=== PATIENT | male | born 1970 | race Caucasian/White ===

== ENCOUNTER 2018-12-03 02:56 | Emergency (ER) | payer OTHER ==
[~2018-12-03] VITALS: Ht 165.1 cm; Wt 90.0 kg
[2018-12-03] MEDS ORDERED: ZIPRASIDONE 20 MG INJ IM ONE (03:00)
[2018-12-03] MEDS ORDERED: MIDAZOLAM 1 MG/ML, 2ML ONE (03:04)
[2018-12-03] MEDS ORDERED: PLEASE ENTER ALLERGIES MC SCH (03:30)
[2018-12-03] MEDS ORDERED: MIDAZOLAM 1 MG/ML, 5ML IM ONE (03:30)
[2018-12-03] MEDS ORDERED: DIPH,PERTUSS(ACELL),TET VAC/PF NC IM-VACC ONE (03:30)
[2018-12-03 03:35] LABS: BASOPHILS # (AUTO) 0.02 x10^3/uL (0-0.1); BASOPHILS % (AUTO) 0 % (0-1); EOSINOPHILS # (AUTO) 0.02 x10^3/uL (0-0.4); EOSINOPHILS % (AUTO) 0 % (1-7); LYMPHOCYTES % (AUTO) 18 % (22-44); MD NO; MEAN CORPUSCULAR HEMOGLOBIN 31.8 pg (27.5-34.5); MEAN CORPUSCULAR HGB CONC 33.2 g/dL (33.2-36.2); MEAN CORPUSCULAR VOLUME 95.8 fL (81-97); MEAN PLATELET VOLUME 9.7 fL (7.4-10.4); MONOCYTES # (AUTO) 0.71 x10^3/uL (0.2-0.8); MONOCYTES % (AUTO) 8 % (2-9); NEUTROPHILS # (AUTO) 6.78 x10^3/uL (1.8-6.8); NEUTROPHILS % (AUTO) 74 % (42-75); PLATELET COUNT 150 x10^3/uL (130-400); RED BLOOD COUNT 4.91 x10^6/uL (4.38-5.82); RED CELL DISTRIBUTION WIDTH 14.7 % (9.4-14.8)
[2018-12-03 03:40] LABS: ALBUMIN 3.7 g/dL (3.4-5.0); ANION GAP 15 mmol/L (5-15); CALCIUM 8.6 mg/dL (8.5-10.1); CHLORIDE 104 mmol/L (98-107); SALICYLATE LEVEL 3.1 mg/dL (2.8-20.0)
[2018-12-03 03:43] LABS: ALANINE AMINOTRANSFERASE 90 U/L (12-78); ALKALINE PHOSPHATASE 65 U/L (45-117); BILIRUBIN,TOTAL 0.4 mg/dL (0.2-1.0); CREATININE 1.11 mg/dL (0.7-1.3); TOTAL PROTEIN 7.8 g/dL (6.4-8.2)
[2018-12-03] MEDS ORDERED: LORazepam 2 MG/ML, 1ML ONE ×2 (03:46→04:33)
[2018-12-03] MEDS ORDERED: DIPH,PERTUSS(ACELL),TET VAC/PF 0.5 ML IM-VACC ONE (03:59)
[2018-12-03] MEDS ORDERED: LIDOCAINE-MPF 1%, 5ML ONE (03:59)
[2018-12-03] MEDS ORDERED: LORazepam 2 MG/ML, 1ML IVPush ONE ×2 (04:00→04:30)
[2018-12-03] MEDS ORDERED: SODIUM CHLORIDE 0.9% 1,000ML IVBOLUS ONE ×2 (04:00→07:00)
--- NOTE | 2018-12-03 04:11 | NUR ---
pt bib and elzbieta pd, pt placed on legal 1999 by rpd pt cut left wrist and using meth, pt rambling, unorganised thoughts impulsive unable to follow commands, placed in hard locking restraints by rpd and security medicated per emar
[2018-12-03] MEDS ORDERED: BACITRACIN ZINC OINT 500U/GM, 0.9 GM ONE (04:34)
--- NOTE | 2018-12-03 04:49 | NUR ---
meds given per emar pt awawe talking nonsenscicle
--- NOTE | 2018-12-03 06:21 | NUR ---
pt sleeping in nad
--- NOTE | 2018-12-03 07:05 | NUR ---
REC BS REPORT PT SLEEPING ON FULL MONITOR SITTER IN THE [place]
--- NOTE | 2018-12-03 07:15 | NUR ---
REMOVED PT FROM RESTRAINTS WILL MONITOR ACTIVITY SITTER WATCHING THE PT
--- NOTE | 2018-12-03 08:33 | NUR ---
PT RESTING AT THIS TIME AROUSES TO VERBAL SITTER WATCHING THE PT
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
[2018-12-03 09:38] LABS: AMPHETAMINE SCREEN, URINE Positive (Negative); BARBITURATE SCREEN, URINE Negative (Negative); BENZODIAZEPINE SCREEN, URINE Positive (Negative); CANNABINOID SCREEN, URINE Negative (Negative); COCAINE SCREEN, URINE Negative (Negative); METHADONE SCREEN, URINE Negative (Negative); OPIATE SCREEN, URINE Negative (Negative)
--- NOTE | 2018-12-03 10:10 | NUR ---
SO BACK AT THE BS
[2018-12-03 10:13] VITALS: BP 124/78
--- NOTE | 2018-12-03 10:29 | NUR ---
BREAK RN: SPOKE WITH SOC, REPORT GIVEN. REQUESTED GIRLFRIEND TO LEAVE THE ROOM FOR EXAM. CAMERA SET UP, ESCORTED GIRLFRIEND TO LOBBY UNTIL MEDICAL EXAM IS OVER.
== END 2018-12-03 12:11 | disposition home or self-care (01) ==
LOC: ED 10:00
DX: S61.512A Laceration without foreign body of left wrist, initial encounter (principal); F15.122 Other stimulant abuse with intoxication with perceptual disturbance; F15.121 Other stimulant abuse with intoxication delirium; R45.851 Suicidal ideations; X78.9XXA Intentional self-harm by unspecified sharp object, initial encounter; Y93.89 Activity, other specified; Y92.89 Other specified places as the place of occurrence of the external cause; Y99.8 Other external cause status
CPT/HCPCS: 36415; 80053; 80307; 85025; 90471; 90715; 93005; 96372; 96374; 96376; 99284; J2060; J2250; J7030

== ENCOUNTER 2018-12-03 13:28 | Inpatient (IN) | payer OTHER ==
[~2018-12-03] VITALS: Ht 165.1 cm; Wt 92.0 kg
--- NOTE | 2018-12-03 13:54 | NUR ---
pt brought in y ems after found in a psychotic state in hospital parking structure. per security, upon their arrival the pt became violent and combattive. as they tried to restrain him for safety, he ran to a nearby overpass, climbed the fence, and was attemptimg to jump. security apprehended him, ems arrived and inststed a legal hold. pt was viraj here in restraintsa. restraints remain in place via security. melchor is agreeable to restraints, and the pt is increasingly cooperative at this time. i will monitor and treat as ordered, as well as prn. security measures are in place for suicide precautions.
--- NOTE | 2018-12-03 13:56 | NUR ---
PT REFUSING ANTI-ANXIETY MEDS. REQUESTING 4 POINT TO "HELP ME CALM DOWN." PARodriguezC IS AWARE AND AGREEABLE.
--- NOTE | 2018-12-03 13:58 | NUR ---
md is at the bedside for assessment
[2018-12-03 14:14] LABS: ANION GAP 10 mmol/L (5-15); CALCIUM 8.1 mg/dL (8.5-10.1); CHLORIDE 107 mmol/L (98-107); CREATININE 1.02 mg/dL (0.7-1.3); SALICYLATE LEVEL 1.9 mg/dL (2.8-20.0)
--- NOTE | 2018-12-03 15:10 | NUR ---
received report from Luis A. pt laying on gurney awake & calm, responds to staff with verbal stimuli, NAD, comfort measures provided, GF at BS, pt remains in safe environment, sitter in view.
--- NOTE | 2018-12-03 15:14 | NUR ---
meghann (rn) is assuming care of this pt at this time. sbar report was exchanged at the bedside.
--- NOTE | 2018-12-03 16:02 | NUR ---
pt continues laying on gurney sleeping, responds to staff with verbal stimuli, NAD, comfort measures provided, GF at BS, pt remains in safe environment, sitter in view.
--- NOTE | 2018-12-03 17:01 | NUR ---
pt laying on gurney sleeping, calm & cooperative, responds approp to staff, verbalizes understanding of criteria to DC restraints- security called for removal, NAD, comfort measures provided, GF at BS, pt remains in safe environment, sitter in view.
--- NOTE | 2018-12-03 17:16 | NUR ---
dinner tray given
[2018-12-03 17:17] LABS: AMPHETAMINE SCREEN, URINE Positive (Negative); BARBITURATE SCREEN, URINE Negative (Negative); BENZODIAZEPINE SCREEN, URINE Positive (Negative); CANNABINOID SCREEN, URINE Negative (Negative); COCAINE SCREEN, URINE Negative (Negative); METHADONE SCREEN, URINE Negative (Negative); OPIATE SCREEN, URINE Negative (Negative)
--- NOTE | 2018-12-03 18:00 | NUR ---
pt laying on gurney dozing off, calm & cooperative when responds to staff, NAD, comfort measures provided, GF at BS, pt remains in safe environment, sitter in view.
--- NOTE | 2018-12-03 18:52 | NUR ---
report given to Christian
--- NOTE | 2018-12-03 19:24 | NUR ---
ASSUMED CARE FOR THIS PT. GF AT BEDSIDE AND AWAITING [facility] PLACEMENT.
--- NOTE | 2018-12-03 20:58 | NUR ---
REPORT FROM JAMSHID QUINONES. PT RESTING WITH FAMILY AT BEDSIDE. SITTER IN VIEW OF PT.
--- NOTE | 2018-12-03 22:57 | NUR ---
EMERSON FROM 2 N HERE TO EVALUATED PT.
--- NOTE | 2018-12-03 23:08 | NUR ---
PT UP TO BATHROOM. PT FEELING ANXIOUS. PT BACK TO ROOM. SITTER IN VIEW OF PT.
[2018-12-04] MEDS ORDERED: LORazepam 2 MG/ML, 1ML IVPush PRN
[2018-12-04] MEDS ORDERED: ENOXAPARIN 40 MG/0.4 ML SQ SCH
[2018-12-04 00:48] VITALS: BP 128/85
[2018-12-04] MEDS ORDERED: ZIPRASIDONE 20 MG INJ IM ONE ×2 (00:59→01:00)
[2018-12-04] MEDS ORDERED: LORazepam 1MG TABLET PO ONE (01:15)
[2018-12-04] MEDS ORDERED: LORazepam 2 MG/ML, 1ML IV PRN (04:00)
[2018-12-04] MEDS ORDERED: LORazepam 1MG TABLET PO PRN (07:30)
[2018-12-04 11:04] VITALS: BP 128/83
== END 2018-12-04 15:15 | disposition home or self-care (01) | DRG 897 ==
LOC: ED 16:11 → EDIP 22:22 → 2N 23:04
PROVIDERS: ADMIT Family Medicine; ATTEND Family Medicine
DX: F15.150 Other stimulant abuse with stimulant-induced psychotic disorder with delusions (principal); F11.159 Opioid abuse with opioid-induced psychotic disorder, unspecified; F15.159 Other stimulant abuse with stimulant-induced psychotic disorder, unspecified; F41.9 Anxiety disorder, unspecified; F17.210 Nicotine dependence, cigarettes, uncomplicated; I50.9 Heart failure, unspecified; K74.60 Unspecified cirrhosis of liver; E11.9 Type 2 diabetes mellitus without complications; S51.812A Laceration without foreign body of left forearm, initial encounter; Z63.0 Problems in relationship with spouse or partner; Z78.1 Physical restraint status; Z80.9 Family history of malignant neoplasm, unspecified; Z85.819 Personal history of malignant neoplasm of unspecified site of lip, oral cavity, and pharynx; Z86.718 Personal history of other venous thrombosis and embolism
CPT/HCPCS: 36415; 80048; 80307; 93970; 99285; G0378; J3486